=== PATIENT | female | born 2000 | race Hispanic/Latino ===

== ENCOUNTER 2024-10-11 13:32 | Inpatient (IN) | payer MEDICAID ==
[2024-10-14 19:40] VITALS: BMI 25.8
[2024-10-14 21:08] LABS: HIV (1/2) Antibody/Antigen Non-Reactive (NonReactive); HIV 1/2 INDEX 0.09 S/CO (<1.00)
[2024-10-14] MEDS ORDERED: Diphenoxylate HCl/Atropine Tablet PO PRN (21:36)
[2024-10-14] MEDS ORDERED: fentaNYL 50 mcg/mL 1 mL Vial SLOW IVP PRN (21:36)
[2024-10-14] MEDS ORDERED: Acetaminophen 500 MG TAB PO PRN (21:36)
[2024-10-14] MEDS ORDERED: Promethazine HCl 25 MG/ML VIAL IM PRN (21:36)
[2024-10-14] MEDS ORDERED: Tranexamic Acid 1,000 MG/10 ML VIAL IVP PRN (21:36)
[2024-10-14] MEDS ORDERED: Ondansetron PF 4 MG/2 ML Vial IVP PRN (21:36)
[2024-10-14] MEDS ORDERED: hydrALAZINE 20 MG/ML VIAL SLOW IVP PRN (21:36)
[2024-10-14] MEDS ORDERED: Carboprost 250 MCG/ML AMP IM PRN (21:36)
[2024-10-14] MEDS ORDERED: Lidocaine 1% (PF) 30 ML VIAL SC PRN (21:36)
[2024-10-14] MEDS ORDERED: Misoprostol 200 MCG TAB PR PRN (21:36)
[2024-10-14] MEDS ORDERED: Methylergonovine 0.2 MG/ML VIAL IM PRN (21:36)
[2024-10-14] MEDS ORDERED: HYDROcodone/Acetaminophen 5/325 mg Tablet PO PRN (21:36)
[2024-10-14] MEDS ORDERED: Oxytocin 30 units/NS 500 ML 500 ML IV SCH ×3 (21:45)
[2024-10-14] MEDS ORDERED: Lactated Ringer's 1,000 ML IV SCH (21:45)
[2024-10-14 21:57] LABS: Hematocrit 34.9 % (34.9-44.5); Hemoglobin 11.8 g/dL (12.0-15.5); Mean Corpuscular HGB CONC 33.8 g/dL (32.0-36.0); Mean Corpuscular Hemoglobin 28.9 pg (27.0-33.0); Mean Corpuscular Volume 85.3 fL (81.6-98.3); Mean Platelet Volume 10.3 fL (7.4-10.4); Platelet Count 364 10x3/uL (150-450); RBC Distribution Width 12.9 % (11.5-14.5); Red Blood Cell (RBC) Count 4.09 10x6/uL (3.90-5.03)
[2024-10-14 22:27] LABS: Syphilis Antibody Nonreactive (Nonreactive); Syphilis Antibody Index 0.08 S/CO (<1.00 Non-Reactive)
[2024-10-14 22:28] LABS: HBsAg Index 0.19 S/CO (0-0.99); Hep B Surf Ag - L&D Non-Reactive S/CO (NonReactive)
[2024-10-15] MEDS: Misoprostol 100 MCG TAB PO SCH (01:12)
[2024-10-15] MEDS: fentaNYL/Ropivacaine Epidural 100 ML ONE (12:10)
[2024-10-15] MEDS ORDERED: Naloxone HCl 0.4 mg/ml Vial IVP PRN ×2 (12:32)
[2024-10-15] MEDS ORDERED: Lactated Ringer's 500 ML IV PRN (12:32)
[2024-10-15] MEDS ORDERED: Moisturizing Cream (Eucerin) 113 GM JAR TOP PRN (12:32)
[2024-10-15] MEDS ORDERED: diphenhydrAMINE 50 MG/ML VIAL IVP PRN (12:32)
[2024-10-15] MEDS ORDERED: Ondansetron PF 4 MG/2 ML Vial IVP PRN ×2 (12:32→19:32)
[2024-10-15] MEDS ORDERED: Promethazine HCl 25 MG/ML VIAL IM PRN ×2 (12:32→19:32)
[2024-10-15] MEDS ORDERED: Acetaminophen 325 MG TAB PO PRN (12:32)
[2024-10-15] MEDS ORDERED: Communication Order-Pharmacy FS SCH (12:45)
[2024-10-15] MEDS ORDERED: fentaNYL 2 mcg/Ropivacaine 0.2% Epidural 100 ML CADD EPIDURAL SCH (12:45)
[2024-10-15] MEDS: ePHEDrine Sulfate 50 MG/10 ML VIAL SLOW IVP PRN (13:20)
[2024-10-15] MEDS: Ibuprofen 800 MG TAB PO PRN (17:44)
[2024-10-15] MEDS ORDERED: Boostrix 0.5 ML (Tdap) VIAL (>/=7 yrs of age) IM ONE (19:32)
[2024-10-15] MEDS ORDERED: hydrALAZINE 20 MG/ML VIAL SLOW IVP PRN (19:32)
[2024-10-15] MEDS ORDERED: diphenhydrAMINE 25 MG CAP PO PRN (19:32)
[2024-10-15] MEDS ORDERED: Lanolin Ointment 7 GM TUBE TOP PRN (19:32)
[2024-10-15] MEDS ORDERED: Bisacodyl 10 MG SUPP PR PRN (19:32)
[2024-10-15] MEDS ORDERED: Milk Of Magnesia 30 ML UDCUP PO PRN (19:32)
[2024-10-15] MEDS: Phytonadione Neonatal 1 MG/0.5 ML AMP ONE (20:32)
[2024-10-15] MEDS: Erythromycin Base 0.5% Oint 1 GM TUBE ONE (20:32)
[2024-10-15] MEDS: Docusate 100 MG CAP PO SCH (20:45)
[2024-10-15] MEDS: Benzocaine-Menthol 82.5 ML CAN TOP PRN (20:45)
[2024-10-16] MEDS: Ibuprofen 800 MG TAB PO SCH ×2 (04:04→12:34)
[2024-10-16] MEDS: Ferrous Sulfate 325 MG TAB PO SCH (08:19)
[2024-10-16] MEDS: Hepatitis B Vaccine 10 MCG/0.5 ML SYR ONE (08:19)
[2024-10-16] MEDS: Prenatal Vitamin 1 TAB PO SCH (08:31)
[2024-10-16] MEDS: HYDROcodone/Acetaminophen 5/325 mg Tablet PO PRN (14:05)
[2024-10-17 07:46] VITALS: BP 112/64; TEMP 97.7
== END 2024-10-17 16:25 | disposition home or self-care (01) | DRG 807 ==
LOC: CSHLD 10-14 18:22 → CSHPP 10-15 19:45
PROVIDERS: ADMIT Family Medicine; ATTEND Family Medicine
PROC: 10E0XZZ Delivery of Products of Conception, External Approach (ICD-10-PCS; principal; 2024-10-14)
PROC: 0UQMXZZ Repair Vulva, External Approach (ICD-10-PCS; 2024-10-14)
PROC: 10907ZC Drainage of Amniotic Fluid, Therapeutic from Products of Conception, Via Natural or Artificial Opening (ICD-10-PCS; 2024-10-14)
DX: O48.0 Post-term pregnancy (principal); Z37.0 Single live birth; O70.0 First degree perineal laceration during delivery; Z3A.40 40 weeks gestation of pregnancy
CPT/HCPCS: 36415; 51702; 85027; 86780; 86850; 86900; 86901; 87340; 87389